=== PATIENT | female | born 1965 | race Caucasian/White ===

== ENCOUNTER 2020-06-21 10:08 | Emergency (ER) | payer OTHER ==
[~2020-06-21] VITALS: Ht 154.9 cm; Wt 64.4 kg
== END 2020-06-21 10:36 | disposition home or self-care (01) ==
LOC: ED 10:08
DX: S54.22XA Injury of radial nerve at forearm level, left arm, initial encounter (principal); T81.30XA Disruption of wound, unspecified, initial encounter; Z48.02 Encounter for removal of sutures; X58.XXXA Exposure to other specified factors, initial encounter; Y93.89 Activity, other specified; Y92.89 Other specified places as the place of occurrence of the external cause; Y99.8 Other external cause status